=== PATIENT | male | born 1965 | race African-American/Black ===

== ENCOUNTER 2017-09-22 16:31 | Emergency (ER) | payer SELFPAY ==
[~2017-09-22] VITALS: Ht 162.6 cm; Wt 96.0 kg
[~2017-09-22 16:31] MED LIST: ADALAT CC30 MG PO; ZANTAC150 M1 PO
[2017-09-22] MEDS ORDERED: LISINOPRIL20 MG PO (16:51)
[2017-09-22] MEDS ORDERED: ASPIRIN81 MG PO (16:51)
[2017-09-22] MEDS ORDERED: AMLODIPINE5 MG PO (16:52)
[2017-09-22] MEDS ORDERED: HYDROCHLOROT25 MG PO (16:52)
[2017-09-22] MEDS ORDERED: METOPROL TAR25 MG PO (16:53)
[2017-09-22] MEDS ORDERED: HYDROCHLOROT12.5 M1 PO (17:10)
[2017-09-22] MEDS ORDERED: METOPROLOL TAR100 MG PO (17:11)
[2017-09-22] MEDS ORDERED: BAYER ASPIRIN E81 MG PO (17:13)
[2017-09-22 17:23] LABS: URINE BILIRUBIN - DIPSTICK NEGATIVE (NEGATIVE); URINE BLOOD DIPSTICK MODERATE (NEGATIVE); URINE COLOR YELLOW; URINE GLUCOSE - DIPSTICK NEGATIVE (NEGATIVE); URINE KETONE TRACE mg/dL (NEGATIVE); URINE LEUK ESTERASE NEGATIVE (NEGATIVE); URINE NITRITE - DIPSTICK NEGATIVE (Negative); URINE PH 5.5 (4.5-8.0); URINE PROTEIN - DIPSTICK NEGATIVE (NEG-TRACE); URINE SPECIFIC GRAVITY >=1.030; URINE UROBILINOGEN - DIPSTICK 0.2 E.U./dL (0.2)
[2017-09-22 17:39] LABS: URINE CLARITY CLEAR
[2017-09-22 17:40] LABS: URINE RBC 0-2 RBC/hpf (0-5); URINE WBC 0-2 WBC/hpf (0-5)
[2017-09-22 17:49] LABS: HEMATOCRIT 40.9 % (39.0-50.0); HEMOGLOBIN 13.4 g/dl (14.0-18.0); IMMATURE GRANULOCYTES 0.2 % (0.0-1.0); MEAN CELL VOLUME 98.1 fL CALC (80.0-100.0); MEAN CORPUSCULAR HGB 32.1 pG CALC (26.0-32.0); MEAN CORPUSCULAR HGB CONC 32.8 g/L CALC (32.0-36.0); NEUT# 3.99 thou/uL (1.82-7.42); RED BLOOD COUNT 4.17 mill/uL (4.70-6.10); RED CELL DISTRI WIDTH 13.8 % (11.5-15.5)
[2017-09-22 18:03] LABS: ALBUMIN 4.7 g/dL (3.2-5.0); BILIRUBIN, TOTAL 0.5 mg/dL (0.0-1.4); CALCIUM 10.4 mg/dL (8.4-10.2); CREATININE 1.5 mg/dL (0.7-1.3); POTASSIUM 3.7 mmol/l (3.5-5.1); TOTAL PROTEIN 7.9 g/dL (6.3-8.2)
[2017-09-22] MEDS ORDERED: EC-NAPROSYN500 MG PO (18:09)
[2017-09-22] MEDS ORDERED: LORTAB 5/3255 MG PO (18:09)
[2017-09-22] MEDS ORDERED: FLEXERIL PO (18:09)
[2017-09-22 19:35] VITALS: BP 155/79
== END 2017-09-22 19:35 | disposition home or self-care (01) | DRG 552 ==
LOC: ED 16:31
PROVIDERS: Emergency Medicine
DX: M54.5 Low back pain (principal); I10 Essential (primary) hypertension

== ENCOUNTER 2017-10-21 20:00 | Emergency (ER) | payer SELFPAY ==
[~2017-10-21] VITALS: Ht 162.6 cm; Wt 90.9 kg
[~2017-10-21 20:00] MED LIST changes: +AMLODIPINE5 MG PO; +ASPIRIN81 MG PO; +BAYER ASPIRIN E81 MG PO; +EC-NAPROSYN500 MG PO; +FLEXERIL PO; +HYDROCHLOROT12.5 M1 PO; +HYDROCHLOROT25 MG PO; +LISINOPRIL20 MG PO; +LORTAB 5/3255 MG PO; +METOPROL TAR25 MG PO; +METOPROLOL TAR100 MG PO
[2017-10-21 20:55] VITALS: BP 151/96
== END 2017-10-21 21:48 | disposition left against medical advice (07) | DRG 951 ==
LOC: ED 20:00 → LWOBS 21:48
DX: Z91.19 Patient's noncompliance with other medical treatment and regimen (principal)